=== PATIENT | female | born 1995 | race Caucasian/White ===

== ENCOUNTER 2019-09-24 12:30 | Outpatient (CLI) | payer OTHER, SELFPAY ==
[2019-09-24 12:49] LABS: Basophils Absolute Auto 0.08 K/mm3 (0.00-0.10); Eosinophils Absolute Auto 0.45 K/mm3 (0.02-0.50); Eosinophils Percent Auto 5.4 % (1.0-6.0); Hematocrit 43.9 % (35.0-49.0); Hemoglobin 14.3 g/dL (12.0-15.0); Immature Granulocyte Absolute 0.06 K/mm3 (0.00-0.00); Immature Granulocyte Percent A 0.7 % (0.0-0.0); Lymphocytes Absolute Auto 2.73 K/mm3 (1.10-4.50); Lymphocytes Percent Auto 32.9 % (18.0-42.0); Mean Corpuscular HGB Conc 32.6 g/dL (32.0-36.0); Mean Corpuscular Hemoglobin 26.5 pg (27.0-31.0); Mean Corpuscular Volume 81.3 fL (78.0-102.0); Mean Platelet Volume 10.4 fl (9.2-11.8); Monocytes Absolute Auto 0.49 K/mm3 (0.10-0.90); Monocytes Percent Auto 5.9 % (2.0-11.0); Neutrophils Absolute Auto 4.5 K/mm3 (1.7-7.2); Neutrophils Percent Auto 54.1 % (50.0-70.0); Platelet Count Result 299 K/mm3 (150-420); Red Cell Distribution Width 13.2 % (11.6-14.4); White Blood Count 8.3 K/mm3 (4.8-10.8)
[2019-09-24 13:09] LABS: Hemoglobin A1C 10.3 % (<5.7)
[2019-09-24 13:33] LABS: Alanine Aminotransferase 146 U/L (14-59); Albumin Level 3.9 g/dL (3.4-5.0); Alkaline Phosphatase 54 U/L (46-116); Anion Gap 16.4 mmol/L (7-16); Aspartate Amino Transferase 101 U/L (15-37); Bilirubin,Total 0.5 mg/dL (0.00-1.00); Blood Urea Nitrogen 11 mg/dL (7-18); Calcium 9.3 mg/dL (8.5-10.1); Carbon Dioxide 28 mmol/L (21-32); Chloride 99 mmol/L (98-108); Cholesterol 172 mg/dL (0-200); Estimated Glomerular Filt Rate > 60; Glucose 184 mg/dL (70-99); HDL Direct 54 mg/dL (40-60); LDL Cholesterol Calculated 96 mg/dL (<130); Osmolality Calculated 292 mOsm/kg (285-295); Potassium 4.4 mmol/L (3.5-5.1); Sodium 139 mmol/L (136-145); Thyroid Stimulating Hormone 2.17 uIU/mL (0.36-3.74); Total Protein 7.7 g/dL (6.4-8.2); Triglycerides 110 mg/dL (0-150)
[2019-09-27 11:12] LABS: Vitamin D 25 Hydroxy 13 ng/mL (30-100)
[2019-09-29 03:18] LABS: Hepatitis A Antibody IgM Nonreactive; Hepatitis B Core Antibody Nonreactive (Nonreactive); Hepatitis B Surface Antigen Nonreactive (Nonreactive); Hepatitis C Signal to Cutoff 0.01 ratio (<1.00); Hepatitis C Virus Antibody Nonreactive (Nonreactive)
== END 2019-09-24 12:31 | disposition home or self-care (01) ==
DX: E11.65 Type 2 diabetes mellitus with hyperglycemia (principal); I10 Essential (primary) hypertension; E66.01 Morbid (severe) obesity due to excess calories; Z68.43 Body mass index [BMI] 50.0-59.9, adult; E03.9 Hypothyroidism, unspecified; R74.8 Abnormal levels of other serum enzymes
CPT/HCPCS: 36415; 80053; 80061; 80074; 82306; 83036; 84443; 85025

== ENCOUNTER 2019-09-26 08:02 | Outpatient (CLI) | payer OTHER, SELFPAY ==
--- NOTE | ~2019-09-26 | US_ITS ---
EXAMINATION: US right upper quadrant DATE: 09/26/2019 09:03 INDICATION: Abnormal liver function tests. TECHNIQUE: Multiple grayscale and Doppler ultrasound images of the abdomen were obtained. COMPARISON: CT abdomen and pelvis 06/21/2008 FINDINGS: The visualized portion of the head of the pancreas is normal. There is diffuse hepatic stea tosis. There is a 10 mm hypoechoic mass in the liver. There is normal flow in main portal vein. The g allbladder is normal in size. No gallstones or gallbladder wall thickening. There was no sonographic Duarte sign. The common duct is normal and measures 4 mm. IMPRESSION: 1. Diffuse hepatic steatosis. 2. 10 mm liver mass, likely benign given the patient's age. Reviewed, dictated and finalized at location A.
== END 2019-09-26 08:03 | disposition home or self-care (01) ==
DX: R74.8 Abnormal levels of other serum enzymes (principal); K76.0 Fatty (change of) liver, not elsewhere classified
CPT/HCPCS: 76705

== ENCOUNTER 2019-10-29 15:11 | Outpatient (CLI) | payer OTHER, SELFPAY ==
[2019-10-29 15:26] LABS: Basophils Absolute Auto 0.05 K/mm3 (0.00-0.10); Basophils Percent Auto 0.6 % (0.0-1.0); Eosinophils Absolute Auto 0.29 K/mm3 (0.02-0.50); Eosinophils Percent Auto 3.8 % (1.0-6.0); Hematocrit 39.7 % (35.0-49.0); Hemoglobin 12.6 g/dL (12.0-15.0); Immature Granulocyte Absolute 0.05 K/mm3 (0.00-0.00); Immature Granulocyte Percent A 0.6 % (0.0-0.0); Lymphocytes Absolute Auto 2.52 K/mm3 (1.10-4.50); Lymphocytes Percent Auto 32.7 % (18.0-42.0); Mean Corpuscular HGB Conc 31.7 g/dL (32.0-36.0); Mean Corpuscular Hemoglobin 26.2 pg (27.0-31.0); Mean Corpuscular Volume 82.5 fL (78.0-102.0); Mean Platelet Volume 10.3 fl (9.2-11.8); Monocytes Absolute Auto 0.55 K/mm3 (0.10-0.90); Monocytes Percent Auto 7.1 % (2.0-11.0); Neutrophils Absolute Auto 4.2 K/mm3 (1.7-7.2); Neutrophils Percent Auto 55.2 % (50.0-70.0); Platelet Count Result 305 K/mm3 (150-420); Red Blood Count 4.81 M/mm3 (4.20-5.40); Red Cell Distribution Width 13.4 % (11.6-14.4); White Blood Count 7.7 K/mm3 (4.8-10.8)
== END 2019-10-29 15:12 | disposition home or self-care (01) ==
DX: N92.6 Irregular menstruation, unspecified (principal)
CPT/HCPCS: 36415; 85025

== ENCOUNTER 2019-12-26 19:55 | Emergency (ER) | payer OTHER, SELFPAY ==
[2019-12-26 20:22] VITALS: BP 150/88; PULSE 90; RESP 20; TEMP 36.7; O2SAT 95
[2019-12-26 20:23] LABS: Add Urine Microscopic? YES; Appearance Urine Clear (Clear); Bilirubin Urine Negative (Negative); Blood Urine Negative (Negative); Glucose Urine UA 3+ (Negative); Ketones Urine Trace (Negative); Leukocyte Esterase Ur Negative (Negative); Nitrate Urine Positive (Negative); Protein Urine 2+ (Negative); Specific Grav Ur >= 1.030 (1.010-1.020)
[2019-12-26 20:30] LABS: Bacteria Urine 2+ /hpf; Color Urine Orange (Yellow); RBC Urine 0-2 /hpf (0-2); Squamous Epithelial Cell Urine Few /hpf (Few)
[2019-12-26 20:31] LABS: Pregnancy On Board Control Positive; Urine Pregnancy Test Negative
--- NOTE | 2019-12-26 20:36 | ED.GENADULT ---
HPI - General Adult General Chief complaint: Urogenital-Female Stated complaint: UTI. Source: patient History of Present Illness HPI narrative: Kathleen is a 24F with a PMH of DMII, HTN, fatty liver, Hypothyroidism and recurrent UTI that presentes with UTI type symptoms. She has had dysuria, frequency and urgency worsening for the last 10 days. She had some central lumbar pain after doing labor but no flank pain. She also reports subjective fevers but never took her temp. She was unable to get into her primary care office and was turned away from urgent care so she came to the ED. Related Data Allergies Allergy/AdvReac Type Severity Reaction Status Date / Time escitalopram Allergy Unknown Anxiety Verified 12/26/19 20:30 milk AdvReac Diarrhea Verified 12/26/19 20:30 Review of Systems Constitutional: Constitutional: Reports chills and Reports fever(s) Eyes: Eyes: Reports no additional eye complaints ENT: Reports system reviewed and no additional complaints, except as documented Cardiovascular: Cardiovascular: Reports no additional cardiovascular complaints Respiratory: Respiratory: Reports no additional respiratory complaints Gastrointestinal: Gastrointestinal: Reports no additional gastrointestinal complaints Genitourinary: Genitourinary: Reports as per HPI Musculoskeletal: Musculoskeletal: Reports no additional musculoskeletal complaints Integumentary/Breasts: Skin/Breast: Reports system reviewed and no additional complaints, except as docu Neurologic: Reports system reviewed and no additional complaints, except as documented Psychiatric: Psychiatric: Reports no additional psychiatric complaints Endocrine: Endocrine: Reports no additional endocrine complaints Hematologic/Lymphatic: Hematologic/Lymphatic: Reports no additional hematologic/lymphatic complaints Allergic/Immunologic: Allergic/Immunologic: Reports no additional allergic/immunologic complaints [facility] Family History Family History Other Diabetes mellitus Social History Social History Smoking status: Never smoker Alcohol intake: never Gender identity (if verbalized by the patient): Female Sexual Orientation (if Verbalized by the Patient): Straight or Heterosexual Exam Const: General: no acute distress and alert Orientation/consciousness: patient oriented x3 Limitations: No altered mental status HENMT: Head: normal to inspection Eyes: Conjunctivae: conjunctivae normal Pupils: Equal, round and reactive pupils present Neck: Neck: normal visual inspection Resp: Effort & Inspection: normal respiratory effort Auscultation: clear to auscultation bilaterally Cardio: Rate: regular rate Rhythm: regular rhythm Heart sounds: no murmurs GI: GI Palp: Yes Soft to palpation, No Tenderness to palpation present (GI) and No Guarding due to palpation present (GI) : General: Yes no CVA tenderness Skin: General skin exam: normal color Rashes: no rashes Neuro: General: patient oriented x3 and moves all extremities Extrem: General: normal to inspection Psych: Mental Status: mental status grossly normal Course Course Emergency Course: Kathleen was seen and evaluated. A UA and UHCG was ordered. UA was consistent with UTI as it had Nitrates and WBC as well as bacteria. She was given a tab of keflex and discharged with a script for keflex. Vital Signs Vital signs: Vital Signs Temperature 98.1 F 12/26/19 20:22 Pulse Rate 90 12/26/19 20:22 Respiratory Rate 12/26/19 20:22 Blood Pressure 150/88 H 12/26/19 20:22 Pulse Oximetry 95 12/26/19 20:22 Temperature 98.1 F 12/26/19 20:22 Pulse Rate 90 12/26/19 20:22 Respiratory Rate 12/26/19 20:22 Blood Pressure 150/88 H 12/26/19 20:22 Pulse Oximetry 95 12/26/19 20:22 Medical Decision Making Vital Signs Vital Signs: Vital Signs Temperat
[2019-12-26] MEDS: CEPHALEXIN 500 MG CAPSULE PO (20:45)
[2019-12-26 20:48] VITALS: BP 150/88; PULSE 90; RESP 18; TEMP 37.1; O2SAT 95
== END 2019-12-26 20:49 | disposition home or self-care (01) ==
PROVIDERS: Emergency Provider Family Medicine
DX: N39.0 Urinary tract infection, site not specified (principal); E11.9 Type 2 diabetes mellitus without complications; I10 Essential (primary) hypertension; E03.9 Hypothyroidism, unspecified; K76.0 Fatty (change of) liver, not elsewhere classified
CPT/HCPCS: 81001; 81025; 99283; A9270

== ENCOUNTER 2020-07-16 07:59 | Outpatient (CLI) | payer OTHER, SELFPAY ==
[2020-07-16 08:21] LABS: Basophils Absolute Auto 0.08 K/mm3 (0.00-0.10); Basophils Percent Auto 1.1 % (0.0-1.0); Eosinophils Absolute Auto 0.42 K/mm3 (0.02-0.50); Eosinophils Percent Auto 5.5 % (1.0-6.0); Hematocrit 42.5 % (35.0-49.0); Hemoglobin 13.5 g/dL (12.0-15.0); Immature Granulocyte Absolute 0.03 K/mm3 (0.00-0.00); Immature Granulocyte Percent A 0.4 % (0.0-0.0); Immature Reticulocyte Fraction 12.2 % (2.0-16.52); Lymphocytes Absolute Auto 2.57 K/mm3 (1.10-4.50); Lymphocytes Percent Auto 33.9 % (18.0-42.0); Mean Corpuscular HGB Conc 31.8 g/dL (32.0-36.0); Mean Corpuscular Volume 81.9 fL (78.0-102.0); Mean Platelet Volume 10.2 fl (9.2-11.8); Monocytes Percent Auto 6.6 % (2.0-11.0); Neutrophils Percent Auto 52.5 % (50.0-70.0); Platelet Count Result 305 K/mm3 (150-420); Red Blood Count 5.19 M/mm3 (4.20-5.40); Red Cell Distribution Width 13.1 % (11.6-14.4); Reticulocyte Hemoglobin Conten 30.9 pg (28.0-35.0); Reticulocyte Percent 1.25 % (0.50-1.50); Reticulocytes Absolute 0.06 M/mm3 (0.02-0.1); White Blood Count 7.6 K/mm3 (4.8-10.8)
[2020-07-16 09:13] LABS: Ferritin 101 ng/mL (8-252); Iron 76 ug/dL (50-170); Percent Iron Saturation 22 % (12-57)
[2020-07-16 09:29] LABS: Erythrocyte Sedimentation Rate 21 mm/hr (0-15)
[2020-07-21 08:35] LABS: Hematocrit 42.8 % (35.0-45.0); Hemoglobin 13.4 g/dL (11.7-15.5); MCH 26.6 pg (27.0-33.0); MCV 85.3 FL (80.0-100.0); RDW 14.5 % (11.0-15.0); Red Blood Cell Count 5.02 Mill/uL (3.80-5.10)
== END 2020-07-16 08:00 | disposition home or self-care (01) ==
PROVIDERS: Visit Provider Internal Medicine
DX: R71.8 Other abnormality of red blood cells (principal)
CPT/HCPCS: 36415; 81269; 82728; 83021; 83540; 83550; 85025; 85046; 85652

== ENCOUNTER 2020-08-16 08:53 | Outpatient (CLI) | payer OTHER, SELFPAY ==
[2020-08-16 10:04] LABS: Free T4 Free Thyroxine 1.49 ng/dL (0.76-1.46); Thyroid Stimulating Hormone 4.32 uIU/mL (0.36-3.74)
[2020-08-16 10:06] LABS: Beta HCG Quantitative < 1.00 mIU/mL (0-6)
[2020-08-19 09:40] LABS: Testosterone Total 26 ng/dL (2-45)
[2020-08-19 12:56] LABS: DHEA-Sulfate 205 mcg/dL (18-391)
== END 2020-08-16 08:54 | disposition home or self-care (01) ==
LOC: CHSLAB 08:57
PROVIDERS: Visit Provider Nurse Practitioner
DX: N92.6 Irregular menstruation, unspecified (principal)
CPT/HCPCS: 36415; 82627; 83036; 83498; 83525; 84146; 84403; 84439; 84443; 84702

== ENCOUNTER 2020-09-25 21:49 | Emergency (ER) | payer OTHER, SELFPAY ==
[2020-09-25 21:55] VITALS: BP 150/112; PULSE 69; RESP 20; TEMP 36.1; O2SAT 94
[2020-09-25 22:45] LABS: Basophils Absolute Auto 0.08 K/mm3 (0.00-0.10); Basophils Percent Auto 0.7 % (0.0-1.0); Eosinophils Absolute Auto 0.26 K/mm3 (0.02-0.50); Eosinophils Percent Auto 2.2 % (1.0-6.0); Hematocrit 42.7 % (35.0-49.0); Hemoglobin 13.8 g/dL (12.0-15.0); Immature Granulocyte Absolute 0.06 K/mm3 (0.00-0.00); Immature Granulocyte Percent A 0.5 % (0.0-0.0); Lymphocytes Percent Auto 35.2 % (18.0-42.0); Mean Corpuscular HGB Conc 32.3 g/dL (32.0-36.0); Mean Corpuscular Hemoglobin 25.9 pg (27.0-31.0); Mean Corpuscular Volume 80.1 fL (78.0-102.0); Mean Platelet Volume 10.2 fl (9.2-11.8); Monocytes Absolute Auto 0.74 K/mm3 (0.10-0.90); Monocytes Percent Auto 6.2 % (2.0-11.0); Neutrophils Absolute Auto 6.6 K/mm3 (1.7-7.2); Neutrophils Percent Auto 55.2 % (50.0-70.0); Platelet Count Result 355 K/mm3 (150-420); Red Blood Count 5.33 M/mm3 (4.20-5.40); Red Cell Distribution Width 12.8 % (11.6-14.4); White Blood Count 11.9 K/mm3 (4.8-10.8)
[2020-09-25 22:58] LABS: Alanine Aminotransferase 42 U/L (14-59); Albumin Level 3.9 g/dL (3.4-5.0); Alkaline Phosphatase 50 U/L (46-116); Anion Gap 14 mmol/L (8-16); Aspartate Amino Transferase 19 U/L (15-37); Bilirubin,Total 0.4 mg/dL (0.00-1.00); Blood Urea Nitrogen 16 mg/dL (7-18); Calcium 8.9 mg/dL (8.5-10.1); Carbon Dioxide 26 mmol/L (21-32); Chloride 99 mmol/L (98-108); Estimated CRCL calculation 107 ml/min; Estimated Glomerular Filt Rate > 60; Glucose 198 mg/dL (70-99); Iron 45 ug/dL (50-170); Osmolality Calculated 295 mOsm/kg (285-295); Percent Iron Saturation 12 % (12-57); Potassium 3.4 mmol/L (3.5-5.1); Sodium 139 mmol/L (136-145); Total Protein 8.1 g/dL (6.4-8.2)
--- NOTE | 2020-09-25 23:10 | ED.FEMALEGU ---
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 Currently there is no abdominal pain no cramping no fever chills. MD elicited complaint: vaginal bleeding Pertinent past history: other ( Polycystic ovarian disease) Onset (ago): hour(s) Severity: mild Related Data Home Medications Medication Instructions Recorded Confirmed Provera 10 mg PO DAILY 09/25/20 09/25/20 empagliflozin [Jardiance] 25 mg PO DAILY 09/25/20 09/25/20 glimepiride 2 mg PO DAILY 09/25/20 09/25/20 levothyroxine 50 mcg PO DAILY 09/25/20 09/25/20 lurasidone [Latuda] 40 mg PO DAILY 09/25/20 09/25/20 norethindrone-e.estradiol-iron 1 tablet PO DAILY 09/25/20 09/25/20 Allergies Allergy/AdvReac Type Severity Reaction Status Date / Time escitalopram Allergy Unknown Anxiety Verified 12/26/19 20:30 milk AdvReac Diarrhea Verified 12/26/19 20:30 Review of Systems Review of Systems: All systems reviewed & are unremarkable except as noted in HPI and below PMFSH Past Medical History Medical History Polycystic ovarian disease Family History Family History Other Diabetes mellitus Social History Social History Smoking status: Never smoker Alcohol intake: never Gender identity (if verbalized by the patient): Female Exam Const: General: no acute distress and alert Orientation/consciousness: patient oriented x3 Limitations: altered mental status Eyes: Conjunctivae: conjunctivae normal Pupils: Equal, round and reactive pupils present EOM: EOMs intact bilaterally Neck: Neck: normal visual inspection, no lymphadenopathy and no meningeal signs Chest: Chest palpation & inspection: normal inspection of the chest Resp: Effort & Inspection: normal respiratory effort Cardio: Rate: regular rate Rhythm: regular rhythm GI: GI Palp: Yes Soft to palpation : General: Yes no CVA tenderness External Female Exam: normal external appearance Speculum Exam - Vagina: vaginal bleeding ( scant amount of blood) Back/Spine/Pelvis: Back: no CVA tenderness Skin: General skin exam: normal color Rashes: no rashes Neuro: General: patient oriented x3 and moves all extremities Course Course Emergency Course: perform pelvic exam and there was just a scant amount of vaginal bleeding with a few clots but no overt bleeding was visualized, reviewed blood work with patient and will send medication to her pharmacy that she can start tomorrow. Vital Signs Vital signs: Vital Signs Temperature 36.1 C L 09/25/20 21:55 Pulse Rate 69 09/25/20 21:55 Respiratory Rate 20 09/25/20 21:55 Blood Pressure 150/112 H 09/25/20 21:55 Pulse Oximetry 94 09/25/20 21:55 Temperature 36.1 C L 09/25/20 21:55 Pulse Rate 69 09/25/20 21:55 Respiratory Rate 20 09/25/20 21:55 Blood Pressure 150/112 H 09/25/20 21:55 Pulse Oximetry 94 09/25/20 21:55 MDM - Female Genitourinary Lab Data Result diagrams: 09/25/20 22:39 09/25/20 22:39 Labs: Lab Results 09/25/20 09/25/20 Range/Units 22:39 22:39 WBC 11.9 H (4.8-10.8) K/mm3 RBC 5.33 (4.20-5.40) M/mm3 Hgb 13.8 (12.0-15.0) g/dL Hct 42.7 (35.0-49.0) % MCV 80.1 (78.0-102.0) fL MCH 25.9 L (27.0-31.0) pg MCHC 32.3 (32.0-36.0) g/dL RDW 12.8 (11.6-14.4) % Plt Count 355 (150-420) K/mm3 MPV 10.2 (9.2-11.8) fl Immature Gran % (A
[2020-09-25 23:12] VITALS: BP 152/90; PULSE 69; RESP 20; TEMP 36.1; O2SAT 97
[2020-09-25 23:25] VITALS: BP 152/90; PULSE 74; RESP 18; TEMP 36.6; O2SAT 97
== END 2020-09-25 23:29 | disposition home or self-care (01) ==
PROVIDERS: Emergency Provider Emergency Medicine
DX: N93.8 Other specified abnormal uterine and vaginal bleeding (principal)
CPT/HCPCS: 36415; 80053; 83540; 83550; 85025; 99283

== ENCOUNTER 2020-11-28 14:23 | Outpatient (CLI) | payer OTHER, SELFPAY ==
[2020-11-28 15:33] LABS: Basophils Absolute Auto 0.08 K/mm3 (0.00-0.10); Basophils Percent Auto 1.1 % (0.0-1.0); Eosinophils Absolute Auto 0.29 K/mm3 (0.02-0.50); Eosinophils Percent Auto 4.1 % (1.0-6.0); Hematocrit 41.7 % (35.0-49.0); Hemoglobin 12.8 g/dL (12.0-15.0); Immature Granulocyte Absolute 0.03 K/mm3 (0.00-0.00); Immature Granulocyte Percent A 0.4 % (0.0-0.0); Lymphocytes Absolute Auto 2.19 K/mm3 (1.10-4.50); Lymphocytes Percent Auto 31.1 % (18.0-42.0); Mean Corpuscular HGB Conc 30.7 g/dL (32.0-36.0); Mean Corpuscular Hemoglobin 23.9 pg (27.0-31.0); Mean Corpuscular Volume 77.9 fL (78.0-102.0); Mean Platelet Volume 9.7 fl (9.2-11.8); Monocytes Absolute Auto 0.44 K/mm3 (0.10-0.90); Monocytes Percent Auto 6.3 % (2.0-11.0); Platelet Count Result 329 K/mm3 (150-420); Red Blood Count 5.35 M/mm3 (4.20-5.40); Red Cell Distribution Width 13.1 % (11.6-14.4)
[2020-11-28 15:45] LABS: Hemoglobin A1C 7.2 % (<5.7)
[2020-11-28 16:30] LABS: Alanine Aminotransferase 42 U/L (14-59); Albumin Level 3.7 g/dL (3.4-5.0); Alkaline Phosphatase 38 U/L (46-116); Anion Gap 12 mmol/L (8-16); Aspartate Amino Transferase 20 U/L (15-37); Bilirubin,Total 0.3 mg/dL (0.00-1.00); Blood Urea Nitrogen 14 mg/dL (7-18); Carbon Dioxide 27 mmol/L (21-32); Chloride 102 mmol/L (98-108); Cholesterol 187 mg/dL (0-200); Estimated Glomerular Filt Rate > 60; Glucose 137 mg/dL (70-99); HDL Direct 58 mg/dL (40-60); LDL Cholesterol Calculated 107 mg/dL (<130); Osmolality Calculated 294 mOsm/kg (285-295); Potassium 4.6 mmol/L (3.5-5.1); Sodium 141 mmol/L (136-145); Thyroid Stimulating Hormone 1.74 uIU/mL (0.36-3.74); Total Protein 7.5 g/dL (6.4-8.2); Triglycerides 109 mg/dL (0-150)
== END 2020-11-28 14:24 | disposition home or self-care (01) ==
LOC: CHSLAB 14:37
DX: E11.65 Type 2 diabetes mellitus with hyperglycemia (principal); R74.8 Abnormal levels of other serum enzymes; E66.01 Morbid (severe) obesity due to excess calories; Z68.43 Body mass index [BMI] 50.0-59.9, adult
CPT/HCPCS: 36415; 80053; 80061; 83036; 84443; 85025

== ENCOUNTER 2021-04-14 15:20 | Outpatient (CLI) | payer OTHER, SELFPAY ==
[2021-04-14 15:37] LABS: Eosinophils Absolute Auto 0.42 K/mm3 (0.02-0.50); Eosinophils Percent Auto 4.3 % (1.0-6.0); Hemoglobin 12.6 g/dL (12.0-15.0); Immature Granulocyte Absolute 0.06 K/mm3 (0.00-0.00); Immature Granulocyte Percent A 0.6 % (0.0-0.0); Lymphocytes Absolute Auto 2.68 K/mm3 (1.10-4.50); Lymphocytes Percent Auto 27.3 % (18.0-42.0); Mean Corpuscular Hemoglobin 23.4 pg (27.0-31.0); Mean Corpuscular Volume 78.1 fL (78.0-102.0); Mean Platelet Volume 9.7 fl (9.2-11.8); Monocytes Absolute Auto 0.62 K/mm3 (0.10-0.90); Monocytes Percent Auto 6.3 % (2.0-11.0); Neutrophils Percent Auto 60.5 % (50.0-70.0); Platelet Count Result 402 K/mm3 (150-420); Red Blood Count 5.38 M/mm3 (4.20-5.40); Red Cell Distribution Width 14.8 % (11.6-14.4); White Blood Count 9.8 K/mm3 (4.8-10.8)
[2021-04-14 15:46] LABS: Hemoglobin A1C 7.6 % (<5.7)
[2021-04-14 16:51] LABS: Alanine Aminotransferase 54 U/L (14-59); Albumin Level 3.6 g/dL (3.4-5.0); Alkaline Phosphatase 43 U/L (46-116); Anion Gap 8 mmol/L (8-16); Aspartate Amino Transferase 27 U/L (15-37); Bilirubin,Total 0.4 mg/dL (0.00-1.00); Blood Urea Nitrogen 12 mg/dL (7-18); Calcium 8.9 mg/dL (8.5-10.1); Carbon Dioxide 28 mmol/L (21-32); Chloride 103 mmol/L (98-108); Cholesterol 181 mg/dL (0-200); Estimated Glomerular Filt Rate > 60; Free T4 Free Thyroxine 1.36 ng/dL (0.76-1.46); Glucose 118 mg/dL (70-99); HDL Direct 60 mg/dL (40-60); LDL Cholesterol Calculated 106 mg/dL (<130); Osmolality Calculated 288 mOsm/kg (285-295); Potassium 4.3 mmol/L (3.5-5.1); Sodium 139 mmol/L (136-145); Thyroid Stimulating Hormone 1.32 uIU/mL (0.36-3.74); Total Protein 7.4 g/dL (6.4-8.2); Triglycerides 73 mg/dL (0-150)
[2021-04-14 17:04] LABS: Beta HCG Quantitative < 1.00 mIU/mL (0-6)
[2021-04-18 06:57] LABS: Prolactin 10.5 ng/mL (***)
== END 2021-04-14 15:21 | disposition home or self-care (01) ==
LOC: CHSLAB 15:23
PROVIDERS: Referring Provider Obstetrics & Gynecology Gynecology
DX: F33.1 Major depressive disorder, recurrent, moderate (principal); E11.9 Type 2 diabetes mellitus without complications
CPT/HCPCS: 36415; 80053; 80061; 83036; 84146; 84439; 84443; 84702; 85025

== ENCOUNTER 2021-04-17 17:45 | Emergency (ER) | payer OTHER, SELFPAY ==
[2021-04-17 17:50] VITALS: BP 153/108; PULSE 117; RESP 20; TEMP 37; O2SAT 98
--- NOTE | 2021-04-17 18:00 | ED.URI ---
HPI - URI/Sore Throat General Chief Complaint: Upper Respiratory Infection Stated Complaint: bronchitis Time Seen by Provider: 04/17/21 18:00 Source: patient Mode of arrival: ambulatory Limitations: no limitations History of Present Illness HPI Narrative: 26-year-old woman comes in today complaining of cough, rhinorrhea, sore throat, and headache that started yesterday. She states that she has no shortness of breath or chest pain and she has had no fever. She denies history of smoking and his tested recently negative for asthma. She went to [facility] yesterday where she was tested for COVID and was negative. Her was recently diagnosed with ?bronchitis? and she believes this is what she has. She does not want influenza testing. MD elicited complaint: cough, sore throat and rhinorrhea Onset (ago): day(s) (1) Consistency: constant Severity: moderate Description of mucous: yellow Able to tolerate fluids by mouth: Yes Exacerbating factors: deep breaths Context: sick contacts Associated symptoms: myalgias, headache, rhinorrhea, nasal congestion, sore throat and cough Treatments prior to arrival: none Related Data Home Medications Medication Instructions Recorded Confirmed empagliflozin [Jardiance] 25 mg PO DAILY 09/25/20 04/17/21 glimepiride 2 mg PO DAILY 09/25/20 04/17/21 levothyroxine 50 mcg PO DAILY 09/25/20 04/17/21 lurasidone [Latuda] 40 mg PO DAILY 09/25/20 04/17/21 Allergies Allergy/AdvReac Type Severity Reaction Status Date / Time escitalopram Allergy Unknown Anxiety Verified 12/26/19 20:30 milk AdvReac Diarrhea Verified 12/26/19 20:30 Review of Systems Review of Systems: All systems reviewed & are unremarkable except as noted in HPI and below Constitutional: Constitutional: Denies chills ENT: Reports nasal congestion and Reports sore throat Cardiovascular: Cardiovascular: Denies chest pain and Denies radiating jaw, neck or arm pain Respiratory: Respiratory: Reports cough and Denies dyspnea Gastrointestinal: Gastrointestinal: Denies abdominal pain, Denies nausea and Denies vomiting Musculoskeletal: Musculoskeletal: Denies arthralgias and Denies joint swelling Integumentary/Breasts: Skin/Breast: Denies pruritus, Denies erythema and Denies rash Allergic/Immunologic: Allergic/Immunologic: Denies lip swelling and Denies throat swelling PMFSH Past Medical History Medical History Polycystic ovarian disease Family History Family History Other Diabetes mellitus Social History Social History Smoking status: Never smoker Alcohol intake: never Gender identity (if verbalized by the patient): Female Sexual Orientation (if Verbalized by the Patient): Straight or Heterosexual Exam Const: General: healthy appearing, no acute distress and alert Orientation/consciousness: patient oriented x3 Limitations: no limitations HENMT: Head: normal to inspection Ears: external ears normal, TM's normal bilaterally and EAC's normal General nose exam: Normal nares present Face and sinus: normal facial exam Mouth: Yes moist mucous membranes Throat: posterior oropharynx normal Resp: Effort & Inspection: normal respiratory effort and not labored Auscultation: clear to auscultation bilaterally, no rales, no rhonchi and no wheezes Cardio: Rate: regular rate Rhythm: regular rhythm Heart sounds: no murmurs Skin: General skin exam: normal color, no jaundice and no pallor Rashes: no rashes Neuro: General: patient oriented x3, moves all extremities, no focal motor deficits and CN's II-XI intact bilaterally Speech: normal speech Gait exam (Neuro): Normal gait present Extrem: General: normal to inspection and no clubbing, cyanosis or edema Psych: Appearance: grossly normal and well kempt Mental Status: mental status grossly normal
[2021-04-17 18:26] VITALS: BP 153/91; PULSE 101; RESP 20; TEMP 37; O2SAT 97
== END 2021-04-17 18:29 | disposition home or self-care (01) ==
PROVIDERS: Emergency Provider Emergency Medicine
DX: J40 Bronchitis, not specified as acute or chronic (principal); J06.9 Acute upper respiratory infection, unspecified
CPT/HCPCS: 99283

== ENCOUNTER → 2021-05-14 13:18 | Outpatient (CLI) | payer OTHER, SELFPAY ==
--- NOTE | ~2021-05-14 | US_ITS ---
EXAMINATION: US transvaginal DATE: 05/14/2021 13:36 INDICATION: Abnormal uterine bleeding TECHNIQUE: Multiple endovaginal sonographic images of the pelvis were obtained. COMPARISON: None. FINDINGS: The uterus measures 9 x 4.7 x 5.1 cm. The endometrial complex measures 11 mm. The right ova ry measures 3 x 1.6 x 2 cm. The left ovary measures 2.2 x 2.4 x 1.9 cm. There is normal vascular flow in the ovaries. There is no free fluid in the pelvis. IMPRESSION: 1. No sonographic correlate for the patient's symptoms. Reviewed, dictated and finalized at location F. 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
== END ==
PROVIDERS: Visit Provider Obstetrics & Gynecology Gynecology
DX: N93.8 Other specified abnormal uterine and vaginal bleeding (principal)
CPT/HCPCS: 76830

== ENCOUNTER 2021-08-07 16:14 | Emergency (ER) | payer OTHER, SELFPAY ==
[2021-08-07 16:32] VITALS: BP 151/102; PULSE 125; RESP 18; TEMP 36.6; O2SAT 98
--- NOTE | 2021-08-07 17:28 | ED.FEMALEGU ---
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 iud fell out/increased vb Time Seen by Provider: 08/07/21 16:53 History of Present Illness HPI Narrative: Patient is a 26 year old female with a history of PCOS, recent IUD placement (9 weeks ago) who presents for evaluation of vaginal bleeding for the past 8 weeks, with possible IUD expulsion yesterday. Patient states that she has been bleeding since her procedure, but this is increased in severity over the past 3 days. She is now bleeding through a tampon about once every 3 hours with blood clots. She believes yesterday she saw an IUD string in one of the blood clots. Feels shaky , but denies abdominal pain, lightheadedness, syncope. She was put on doxycycline by her Credit Manager for this bleeding but she does not believe this is better. Related Data Home Medications Medication Instructions Recorded Confirmed empagliflozin [Jardiance] 25 mg PO DAILY 09/25/20 04/17/21 glimepiride 2 mg PO DAILY 09/25/20 04/17/21 levothyroxine 50 mcg PO DAILY 09/25/20 04/17/21 lurasidone [Latuda] 40 mg PO DAILY 09/25/20 04/17/21 Allergies Allergy/AdvReac Type Severity Reaction Status Date / Time escitalopram Allergy Unknown Anxiety Verified 12/26/19 20:30 milk AdvReac Diarrhea Verified 12/26/19 20:30 Review of Systems Review of Systems: Gen.: Denies fevers or chills Eyes: Denies eye pain or visual change ENT: Denies congestion Respiratory: Denies shortness of breath or cough CV: Denies chest pain or palpitations GI: Denies abdominal pain nausea, emesis or diarrhea : Reports vaginal bleeding. denies burning, urgency, frequency or hematuria Musculoskeletal: Denies back pain or muscle pain Neuro: Denies numbness, tingling, weakness or focal weakness Skin: Denies rash Except as documented, all other systems reviewed and negative All systems reviewed & are unremarkable except as noted in HPI and below PMFSH Past Medical History Medical History Polycystic ovarian disease Family History Family History Other Diabetes mellitus Social History Social History Smoking status: Never smoker Alcohol intake: never Gender identity (if verbalized by the patient): Female Sexual Orientation (if Verbalized by the Patient): Straight or Heterosexual Exam Narrative: APPEARANCE: No acute distress, nontoxic, resting in bed, obese EYES: EOMI HEENT: Normocephalic, atraumatic, OMM RESPIRATORY: No respiratory distress Clear to auscultation bilaterally with no rhonchi wheezing or rales. CARDIOVASCULAR: Regular rate and rhythm without murmurs rubs or gallops. ABDOMINAL: Soft, nontender, nondistended, no rebound or guarding MUSCULOSKELETAL: Moves all extremities. No clubbing, cyanosis or edema. NEURO: Awake and alert. Following commands, speech normal, no focal deficits : Exam performed with film color tester [place]. No lesions to labia majora or minora. Internal exam reveals scant amount of vaginal blood in the vault without clots. Exam limited secondary to patient's body habitus; unable to visualize cervix despite multiple attempts. SKIN: Warm, dry. 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 Date: 08/07/21 Time: 18:38 Vital Signs Vital signs: Vital Signs Temperature 97.8 F 08/07/21 16:32 Pulse Rate 125 H 08/07/21 16:32 Respiratory Rate 18 08/07/21 16:32 Blood Pressure 151/102 H 08/07/21 16:32 Pulse Oximetry 98 08/07/21 16:32 Temperature 97.8 F 08/07/21 16:32 Pulse Rate 125 H 08/07/21 16:32 Respiratory Rate 18 08/07/21 16:32 Blood Pressure 151/102 H 08/07/21 16:32 Pulse Oximetry 98 08/07/21 16:32 MDM - Female Genitouri
[2021-08-07 17:35] LABS: Basophils Absolute Auto 0.1 K/mm3 (0.0-0.1); Basophils Percent Auto 1.2 % (0.2-1.2); Eosinophils Absolute Auto 0.2 K/mm3 (0-0.3); Eosinophils Percent Auto 1.7 % (0-4.4); Hematocrit 39.4 % (37.0-47.0); Hemoglobin 11.6 g/dL (12.0-15.0); Immature Granulocyte Absolute 0.05 K/mm3 (0.00-0.031); Immature Granulocyte Percent A 0.5 % (0-0.5); Lymphocytes Absolute Auto 2.69 K/mm3 (0.9-3.2); Lymphocytes Percent Auto 28.3 % (18.3-44.2); Mean Corpuscular HGB Conc 29.4 g/dl (32-36); Mean Corpuscular Hemoglobin 22.3 pg (26-34); Mean Corpuscular Volume 75.6 fl (80-100); Mean Platelet Volume 9.7 fl (7.4-10.4); Monocytes Absolute Auto 0.6 K/mm3 (0.1-0.6); Monocytes Percent Auto 6.3 % (2.6-8.5); Neutrophils Absolute Auto 5.9 K/mm3 (1.3-6.7); Platelet Count Result 395 k/mm3 (150-375); Red Blood Count 5.21 M/mm3 (4.2-5.4); Red Cell Distribution Width 15.9 % (11.5-14.5); White Blood Count 9.5 K/mm3 (4.5-10.0)
[2021-08-07 17:46] LABS: Prothrombin Time 13.2 Seconds (11.1-14.7)
[2021-08-07 17:47] LABS: Partial Thromboplastin Time 30.4 SECONDS (22.3-36.8)
[2021-08-07 17:51] LABS: Anisocytosis 2+ (NORMAL)
[2021-08-07 17:52] LABS: Hypochromasia 1+ (NORMAL)
== END 2021-08-07 19:06 | disposition home or self-care (01) ==
PROVIDERS: Physician Assistant; Emergency Provider General Practice
DX: N93.9 Abnormal uterine and vaginal bleeding, unspecified (principal); E28.2 Polycystic ovarian syndrome; Z79.84 Long term (current) use of oral hypoglycemic drugs; E11.9 Type 2 diabetes mellitus without complications
CPT/HCPCS: 36415; 81025; 85025; 85610; 85730; 99284

== ENCOUNTER 2021-08-11 14:05 | Outpatient (CLI) | payer OTHER, SELFPAY ==
--- NOTE | ~2021-08-11 | US_ITS ---
EXAMINATION: US pelvic complete w TV DATE: 08/11/2021 14:47 INDICATION: Verify IUD placement TECHNIQUE: Multiple transabdominal and endovaginal sonographic images of the pelvis were obtained. COMPARISON: None. FINDINGS: The uterus measures 10.0 x 5.9 x 5.1 cm. The endometrial complex measures 6 mm in thickness. Minimal anechoic fluid and small amount of echogenic material within the endometrial canal. 5 x 4 x 3 mm sub endometrial cystic lesion at the anterior lower uterine segment. An IUD is not visualized. There are a couple small subsegmental air nabothian cysts at the cervix. The right and left ovaries are not vis ualized. There is trace amount of free fluid in the pelvis. IMPRESSION: 1. No IUD identified. 2. Small amount of anechoic fluid and echogenic material potentially representing clot within the end ometrial canal. Correlate with menstrual cycle. Reviewed, dictated and finalized at location A. IMPRESSION: 1. No IUD identified. 2. Small amount of anechoic fluid and echogenic material potentially representi ng clot within the endometrial canal. Correlate with menstrual cycle.
--- NOTE | ~2021-08-11 | XR_ITS ---
EXAM: XR abdomen/kub 1V HISTORY: MISSING IUD COMPARISON: None available FINDINGS: Clear lung bases. Normal bowel gas pattern. No organomegaly. A surgical clip projects over the left pelvis. Pelvic phleboliths. Regional bones and soft tissues normal for age. IMPRESSION: No IUD present. Normal abdominal x-ray findings. Reviewed, dictated and finalized at location K.
== END 2021-08-11 14:06 | disposition home or self-care (01) ==
LOC: ANHIMG 14:11
PROVIDERS: Visit Provider Nurse Practitioner
DX: T83.32XA Displacement of intrauterine contraceptive device, initial encounter (principal)
CPT/HCPCS: 74018; 76830; 76856

== ENCOUNTER 2022-01-18 14:01 | Outpatient (CLI) | payer OTHER, SELFPAY ==
[2022-01-18 14:38] LABS: Hematocrit 40.6 % (37.0-47.0); Hemoglobin 12.3 g/dL (12.0-15.0); Mean Corpuscular HGB Conc 30.3 g/dl (32-36); Mean Corpuscular Hemoglobin 23.2 pg (26-34); Mean Corpuscular Volume 76.5 fl (80-100); Platelet Count Result 391 k/mm3 (150-375); Red Blood Count 5.31 M/mm3 (4.2-5.4); Red Cell Distribution Width 15.5 % (11.5-14.5); White Blood Count 8.9 K/mm3 (4.5-10.0)
[2022-01-18 15:13] LABS: Beta HCG Quantitative < 2.39 mIU/ML
== END 2022-01-18 14:02 | disposition home or self-care (01) ==
LOC: ANHLAB 14:08
PROVIDERS: Visit Provider Obstetrics & Gynecology Gynecology
DX: N92.0 Excessive and frequent menstruation with regular cycle (principal)
CPT/HCPCS: 36415; 84702; 85027